=== PATIENT | male | born 1985 | race Caucasian/White ===

== ENCOUNTER → 2019-01-09 10:36 | Outpatient (CLI) | payer BC | END | disposition home or self-care (01) | LOC: D.MRI 08:30 | PROVIDERS: ATTEND Orthopaedic Surgery | DX: M54.12 Radiculopathy, cervical region (principal) ==

== ENCOUNTER 2019-05-23 08:26 | Day surgery (SDC) | payer BC ==
[~2019-05-23] VITALS: Ht 175.3 cm; Wt 93.0 kg
[~2019-05-23 08:26] MED LIST: ADDERALL 20 MG20 M1 PO; CYCLOBENZAPRINE10 MG PO; KLONOPIN1 MG PO; LEXAPRO20 MG PO; NEURONTIN 300300 MG PO; TESTOSTERONE IM; XANAX1 MG PO
[2019-05-23 09:27] VITALS: BP 135/80; Ht 175.3 cm; Wt 93.0 kg
[2019-05-23] MEDS ORDERED: PERCOCET 5-3251 TAB PO (12:11)
[2019-05-23] MEDS ORDERED: DURICEF500 MG PO (12:11)
--- NOTE | 2019-05-23 13:41 | OP ---
PATIENT NAME: KALINA LUCIA MEDICAL RECORD: [id number] LOCATION:D.OPS ADMISSION DATE: SURGEON: NICK AYALA DO DATE OF OPERATION: 05/23/2019 PROCEDURE PERFORMED: Bilateral endoscopic carpal tunnel release. PREOPERATIVE DIAGNOSIS: Bilateral carpal tunnel syndrome. POSTOPERATIVE DIAGNOSIS: Bilateral carpal tunnel syndrome. INDICATIONS: Mr. Lucia is a 33-year-old male who presented to my office having had a nerve conduction study, which showed severe carpal tunnel on the right and moderate on the left. He was tired of dealing with the pain and the waking him up at night and not having sensation in his hand, he said the right was definitely worse than the left. I informed him of the risks including continued numbness, damage to nerves and vessels including the median nerve, need for further surgery, infection, bleeding, and not gaining the sensation back that was lost due to the severity of the carpal tunnel syndrome. He is aware of those risks and signed the consent. SURGEON: Nick Ayala DO DESCRIPTION OF PROCEDURE: The patient was taken to the operative suite, laid in supine position, given general anesthetic and LMA was placed, given 2 grams of Ancef preoperatively. The right upper extremity was done first. The right upper extremity was prepped and draped in sterile fashion. A timeout was performed and everyone was in agreement with correct side, site, patient and procedure. The upper extremity was then exsanguinated with an Esmarch, tourniquet was inflated to 250 mmHg, was up for 11 minutes. Incision was then made at the wrist crease, just centered over the palmaris longus. This was taken radially and after the incision was made, Ragnells were used to dissect down to the median nerve. The fascia from the forearm was released from distal to proximal right on top of it with loupe magnification on top of the median nerve releasing it and then entered through the carpal tunnel. The dilators were used first and then the sheath was brought in. The 2.7 mm camera was brought in and the transverse carpal ligament was viewed. It was rasped and then probed, cleaned off to ensure there was nothing going through it. The blade was then brought in and raised and the transverse carpal ligament was transected and then fat herniated down into the carpal tunnel ensuring good release. This was then all removed and the sheath and a pickup and scissors and a Ragnell was used to retract to do a direct loupe magnification and visualization of the release and scissors were used to spread any remaining fibers that were intact. The tourniquet was then let down. The site was injected with 10 mL of 0.5% Marcaine without epinephrine and then the site was closed with 5-0 Monocryl in inverted interrupted fashion and then Dermabond glue placed on it. Any bleeding was coagulated prior to this with the bipolar. The tourniquet was let down at 11 minutes. The attention was then drawn to the left when the left upper extremity was Esmarched and exsanguinated and the tourniquet was inflated to 250 mmHg, was up for 9 minutes. An incision was made centered over the palmaris longus. Blunt dissection was made down to the median nerve. The forearm fascia was released from distal to proximal and top of the nerve and then the sheath. The dilator was then used in the carpal tunnel. The transverse carpal ligament was then viewed, probed, and rasped, and then cut with the knife blade through the sheath under direct visualization and fat OPERATIVE REPORT [id number] KALINA LUCIA herniated down into the carpal tunnel. The pickup and scissors were then used as well as the Ragnell to view with loupe magnification to ensure there were no fibers remaining connecting transverse carpal ligament and ensuring good release. This was done and then the site was injected with 10 mL of 0.5% Marcaine without epinephrine. The site was then closed with 5-0 Monocryl in inverted interrupted fashion and Dermabond glue was placed on it. Both sites were then dressed with Adaptic, 4 x 4s, Kerlix and Coban lightly wrapped on them. The blood loss was minimal. COMPLICATIONS: None. TRANSINT:[id number] Voice Confirmation ID: [id number] DOCUMENT ID: [id number] NICK AYALA DO at 1341 CC: [id number] DICTATION DATE: 05/23/19 1216 PRICING SPECIALIST: 05/23/19 1322 [facility] [address] [place] [address]
== END 2019-05-23 13:40 | disposition home or self-care (01) ==
LOC: D.OPS 08:26
PROVIDERS: ATTEND Orthopaedic Surgery
DX: G56.03 Carpal tunnel syndrome, bilateral upper limbs (principal)